=== PATIENT | female | born 1995 | race Two or more races ===

== ENCOUNTER 2019-02-02 08:53 | Inpatient (IN) | payer BC, MEDICAID ==
[~2019-02-02] VITALS: Ht 160 cm; Wt 96.0 kg
[~2019-02-02 08:53] MED LIST: PREN-153 OR; PRENTAB28 OR
[2019-02-02] MEDS ORDERED: ONDANSETRON HCL 4 MG/2 ML VIAL IV ONE (09:30)
[2019-02-02] MEDS ORDERED: KETOROLAC TROMETH 30 MG/ML 1ML VIAL IV ONE (09:30)
[2019-02-02 09:54] LABS: Urine Bacteria FEW /hpf (None Seen); Urine Blood Negative /uL (Negative); Urine Specific Gravity 1.013 (1.001-1.035); Urine WBC 1 /hpf (0 - 5)
[2019-02-02 09:59] LABS: Basophils # (auto) 0.1 uL; Basophils % (auto) 0.6 % (0.0-2.0); Eosinophils # (auto) 0.1 uL; Eosinophils % (auto) 1.1 % (0.0-7.0); Hematocrit 46.5 % (36.0-46.0); Hemoglobin 15.4 g/dL (12.2-16.2); Lymphocytes # (auto) 3.1 uL; Lymphocytes % (auto) 32.1 % (10.0-50.0); Mean Corpuscular Hemoglobin 29.3 pg (28.0-32.0); Mean Corpuscular Volume 88.6 fL (80.0-100.0); Monocytes # (auto) 0.5 uL; Monocytes % (auto) 5.1 % (0.0-12.0); Neutrophils % (auto) 61.1 % (37.0-80.0); Nucleated Red Blood Cells % 0.1 %; Platelet Count (auto) 250 10^3/uL (140-450); Red Blood Cells 5.25 10^6/uL (4.0-5.20); Red Cell Distribution Width 13.5 % (11.8-14.3); White Blood Cell 9.8 10^3/uL (4.4-10.8)
[2019-02-02] MEDS ORDERED: KETOROLAC TROMETH 60MG/2ML VIAL IV ONE (10:15)
[2019-02-02 10:19] LABS: Potassium 4.5 mmol/L (3.5-5.1)
[2019-02-02 10:23] LABS: BUN/Creatinine Ratio 13.2; Bilirubin, Total 0.5 mg/dL (0.2-1.0); Total Protein 8.1 g/dL (6.4-8.2)
[2019-02-02] MEDS ORDERED: ACETAMINOPHEN 500 MG TAB PO PRN (12:45)
[2019-02-02] MEDS: SODIUM CHLORIDE 0.9% 1,000 ML IV SCH (12:51)
[2019-02-02 15:00] LABS: INR 1.01 (0.9-1.15); Partial Thromboplastin Time 26.9 sec (23.64-32.05)
--- NOTE | 2019-02-02 18:13 | NUR ---
ASSUMED CARE OF PATIENT PATIENT ALERT AND ORIENTED X4. RESPIRATIONS EVEN AND UNLABORED. NO S/S OF DISTRESS, SOB, OR PAIN AT THIS TIME. ORIENTED PATIENT TO ROOM, UNIT, POLICIES AND PROCEDURES. DISCUSSED POC WITH PATIENT. PATIENT VERBALIZED UNDERSTANDING. BED IS IN LOWEST POSITION, SIDE RAILS UP X2, AND CALL LIGHT WITHIN REACH.
--- NOTE | 2019-02-02 19:36 | NUR ---
END OF SHIFT PATIENT RESTING IN BED. NO S/S OF DISTRESS, SOB, OR PAIN. ENDORSED CARE TO PLANNING ENGINEER R.N.
[2019-02-02] MEDS: ONDANSETRON HCL 4 MG/2 ML VIAL IV PRN (20:13)
[2019-02-02 22:00] VITALS: BP 113/52
[2019-02-03] MEDS: SODIUM CHLORIDE 0.9% 1,000 ML IV SCH ×2 (02:05→15:43)
[2019-02-03 05:00] VITALS: BP 97/53
[2019-02-03 06:28] LABS: Basophils # (auto) 0 uL; Basophils % (auto) 0.5 % (0.0-2.0); Eosinophils # (auto) 0.1 uL; Eosinophils % (auto) 1.3 % (0.0-7.0); Hematocrit 43.3 % (36.0-46.0); Hemoglobin 14.9 g/dL (12.2-16.2); Lymphocytes # (auto) 2.5 uL; Lymphocytes % (auto) 37.9 % (10.0-50.0); Mean Corpuscular Hemoglobin 30.4 pg (28.0-32.0); Mean Corpuscular Hgb Conc. 34.3 g/dL (32.0-36.0); Mean Corpuscular Volume 88.6 fL (80.0-100.0); Monocytes # (auto) 0.5 uL; Monocytes % (auto) 7.1 % (0.0-12.0); Neutrophils # (auto) 3.5 uL; Neutrophils % (auto) 53.2 % (37.0-80.0); Platelet Count (auto) 223 10^3/uL (140-450); Red Blood Cells 4.89 10^6/uL (4.0-5.20); Red Cell Distribution Width 13.3 % (11.8-14.3); White Blood Cell 6.6 10^3/uL (4.4-10.8)
[2019-02-03 06:49] LABS: Calcium 8.1 mg/dL (8.5-10.1); Potassium 3.9 mmol/L (3.5-5.1)
[2019-02-03 06:52] LABS: BUN/Creatinine Ratio 14.5
[2019-02-03 06:54] LABS: INR 1.04 (0.9-1.15); Partial Thromboplastin Time 27.8 sec (23.64-32.05)
--- NOTE | 2019-02-03 08:00 | NUR ---
RECEIVED PATIENT ALERT AND ORIENTED X4, NOT IN DISTRESS, CLEAR LS IN BILATERAL LUNG LOBES, RR=18 SAT=98%, HEART R=72, DENIED SOB AND CHEST DISCOMFORT, ABDOMEN SIFT WITH ACTIVE BS, LAST BM=02/02/19 REPORTED, KEEP NPO FOR PENDING SURGERY ORDERED, SKIN INTACT WARM TO TOUCH, RESTING ON BED, NEW IV SITE WAS INSERTED ON LT. HAND G20, TOLERATED WELL, DENIED PAIN, VISITORS AT BED SITE, WILL CONTINUE MONITORING.
[2019-02-03 09:04] VITALS: BP 112/54
--- NOTE | 2019-02-03 12:16 | NUR ---
VS T=97.6 RR=18 SAT=97% P=72 BP=98/78, NOT IN DISTRESS, CONSENT AND CHECK LIST COMPLETED AND ON CHART, WENT ON BED TO PRE OP, WILL CONTINUE FOLLOW UP.
[2019-02-03] MEDS ORDERED: ceFAZolin 1GM/50ML 50 ML IV ONE (12:38)
[2019-02-03] MEDS ORDERED: fentaNYL CITRATE 100 MCG/2 ML VL ONE (12:47)
[2019-02-03] MEDS ORDERED: MIDAZOLAM HCL 1MG/1ML-2 ML VIAL ONE (12:47)
[2019-02-03] MEDS ORDERED: ROCURONIUM 10MG/ML 10ML VIAL IV ONE (12:47)
[2019-02-03 12:49] VITALS: BP 96/67
[2019-02-03] MEDS ORDERED: ePHEDrine SULFATE 50 MG/ML AMP IV PRN (13:00)
[2019-02-03] MEDS ORDERED: hydrALAZINE HCL 20 MG/ML VL IV PRN (13:00)
[2019-02-03] MEDS ORDERED: ONDANSETRON HCL 4 MG/2 ML VIAL IV ONE (13:00)
[2019-02-03] MEDS ORDERED: HYDROmorphone HCL 2 MG/ML VL IV PRN (13:00)
[2019-02-03] MEDS: HYDROmorphone HCL 2 MG/ML VL IV PRN ×2 (13:57→14:17)
[2019-02-03] MEDS: MORPHINE SULF INJ 2 MG/ML SYRINGE 1ML IV PRN ×2 (15:39→21:21)
[2019-02-03] MEDS: ONDANSETRON HCL 4 MG/2 ML VIAL IV PRN (15:40)
--- NOTE | 2019-02-03 15:46 | NUR ---
Came back from or, alert and oriented x4, not in distress, laparoscopic incision on abdomen x3, covered with dry and intact dressing, no redness edema or oozing noted, abdominal binder on, tolerating well, VS T=97.9 RR=16 Sat=96% P=102 EW=992/75, C/O pain L=10/10 and nausea, Morphine and Zofran IV PRN was given as ordered, resting on bed, family at bed side, will xcontinue monitoring.
[2019-02-03 16:20] VITALS: BP 132/75
--- NOTE | 2019-02-03 19:54 | NUR ---
Resting on bed, not in distress, report was given to the second shift supervisor.
--- NOTE | 2019-02-03 20:09 | NUR ---
PAGED DR. GOMEZ TO GET AN ORDER FOR GAS PAIN. AWAITING FOR CALL BACK.
--- NOTE | 2019-02-03 21:30 | NUR ---
PATIENT IS C/O BLOATING, GAS PAIN, PAGED DR RIOS FOR GAS PAIN MEDICINE. DR RIOS CALLED AND ASKED ME TO CALL HOSPITALIST. PAGED HOSPITALIST AND NO CALL BACK. ENCOURAGED PATIENT TO AMBULATE, TO HELP PASS GAS. PATIENT AMBULATED ON THE HALLWAY, GOT UP TO THE BATHROOM A FEW TIMES, INCENTIVE SPIROMETER PROVIDED. MORPHINE IV GIVEN FOR ABDOMINAL PAIN WITH GOOD RELIEF. IV NS INFUSING ORDERED. VITAL SIGNS ARE STABLE.
[2019-02-03 22:32] VITALS: BP 121/73
[2019-02-04] MEDS: SODIUM CHLORIDE 0.9% 1,000 ML IV SCH ×2 (04:39→18:05)
[2019-02-04 05:25] VITALS: BP 107/67
--- NOTE | 2019-02-04 08:00 | NUR ---
Received patient alert and oriented x4, not in distress, lung sounds clear in bilateral lung lobes, RR=18 Sat=98%, IS education provided demonstrates and verbalized understanding, denied chest pain or short of breath, laparoscopic incision on abdomen x3, covered with dry and intact dressing, no redness edema or oozing noted, abdominal binder on, tolerating well, no gas passing yet, resting on bed, will continue monitoring.
[2019-02-04] MEDS: MORPHINE SULF INJ 2 MG/ML SYRINGE 1ML IV PRN ×2 (08:22→18:46)
[2019-02-04] MEDS: ONDANSETRON HCL 4 MG/2 ML VIAL IV PRN ×2 (08:22→18:46)
[2019-02-04 08:48] VITALS: BP 101/47
--- NOTE | 2019-02-04 10:00 | NUR ---
OUT OF BED AND AMBULATED AROUND THE UNIT X3, TOLERATED WELL, BACK TO BED AND RESTING AT THIS MOMENT.
--- NOTE | 2019-02-04 12:30 | NUR ---
C/O LT. abdomen gas pain, amputated around the unit with encouragement, no passing gas noted, Dr. Mcintosh was notified and aware.
[2019-02-04 12:37] VITALS: BP 113/66
[2019-02-04 17:00] VITALS: BP 102/63
--- NOTE | 2019-02-04 17:00 | NUR ---
NOT IN DISTRESS, RESTING ON BED, FAMILY AT BED SIDE, REPORT WAS GIVEN TO THE CIRCULAR SAWYER HELPER RN.
--- NOTE | 2019-02-04 18:30 | NUR ---
DR. PEERZ WAS PAGED FOR FOLLOW UP, WAITING FOR CALL BACK.
--- NOTE | 2019-02-04 19:40 | NUR ---
OPENING PLANT OPERATIONS COORDINATOR NOTE ASSUMED CARE OF PATIENT FROM DAY SHIFT CATRACHO KIRKPATRICK. PATIENT IS A/O X 4 WITH EVEN UNLABORED RESPIRATIONS. SHE DENIES ANY AB PAIN AT THIS TIME, BUT STATES THAT SHE HAS AB BLOATING. SHE STATES THAT SHE IS UNABLE TO PASS GAS OR STOOL AT THIS TIME, AND THAT SHE HAS BEEN AMBULATING MUCH SHE CAN. ACCORDING TO DAY SHIFT CATRACHO KIRKPATRICK AND IN NOTES, DR GILLIAM IS AWARE. PATIENT EDUCATED ON SPLINTING, AMB, FLUIDS, AND DIET. PATIENT STATED THAT SHE ATE A DOUGHNUT AND HAD COFFEE EARLIER THAT HER MOM GAVE TO HER. SHE WANTS DIET ADVANCED. PATIENT ALSO STATES THAT SHE IS ALLERGIC TO THE ZOFRAN BECAUSE SHE BROKE OUT IN A RASH AND STARTED ITCHING DURING CHANGE OF SHIFT. SHE STATES THAT NO ONE CAME WHEN CALL LIGHT WAS ON. RN NOT NOTIFIED BY NA THAT PATIENT CALLED. PATIENT ALSO UPSET THAT CATRACHO KIRKPATRICK GAVE HER ZOFRAN STATING THAT SHE HAD NO N/V. ZOFRAN DC'D AND ADDED TO ALLERGY LIST. ALL CONCERNS ADDRESSED. DISCUSSED POC AND PATIENT ENCOURAGED TO CALL PRN. BED IS IN LOWEST POSITION, LOCKED, AND CALL LIGHT IS IN REACH. WILL CONTINUE TO MONITOR Q1 AND PRN.
[2019-02-04 22:00] VITALS: BP 106/58
[2019-02-05 05:00] VITALS: BP 102/49
--- NOTE | 2019-02-05 07:10 | NUR ---
OPENING SHIFT NOTE ASSUMED CARE OF PATIENT. PATIENT IS A&OX4 WITH NO C/O PAIN. PRESENTS WITH ABDOMINAL BINDER AND INCISIONS X3, COVERED WITH GAUZE, NO DRAINAGE NOTED. AMBULATES INDEPENDENTLY. EDUCATED PATIENT ON USE OF CALL LIGHT PRN, PATIENT VERBALIZED UNDERSTANDING. NO CURRENT S/S OF DISTRESS NOTED, CONTINUING TO MONITOR PATIENT Q1 HR
[2019-02-05] MEDS: SODIUM CHLORIDE 0.9% 1,000 ML IV SCH ×2 (07:25→17:58)
--- NOTE | 2019-02-05 07:30 | NUR ---
CARE ENDORSED TO CRISTINA HAYDEN
[2019-02-05 09:00] VITALS: BP 120/68
[2019-02-05 13:00] VITALS: BP 116/59
[2019-02-05 17:00] VITALS: BP 106/59
--- NOTE | 2019-02-05 19:01 | NUR ---
CLOSING NOTE CARE OF PATIENT DELEGATED TO SHOE STOCK ASSOCIATE
--- NOTE | 2019-02-05 19:30 | NUR ---
OPENING SHIFT NOTE ASSUMED CARE OF PATIENT FROM CRISTINA HAYDEN. PATIENT IS A/O X4 WITH EVEN AND UNLABORED RESPIRATIONS. NO S/S OF DISTRESS NOTED AND PATIENT DENIES ANY PAIN. PATIENT STATES THE SHE HAD A BM TODAY AND THAT SHE IS NOW ABLE TO PASS GAS. PATIENT STATES THAT SHE WANTS TO GO HOME. AB BINDER IS IN PLACE. LAP CHARLES INCISION SITES ARE CLEAN, DRY, AND INTACT. BED IS IN LOWEST POSITION, LOCKED, CALL LIGHT IS IN PLACE. WILL CONTINUE TO MONITOR Q1 AND PRN.
--- NOTE | 2019-02-05 19:40 | NUR ---
DR GILLIAM PAGED FOR D/C ORDER PATIENT EAGER TO GO HOME. SHE STATED THAT DR MORILLO SAID SHE WAS ABLE TO GO HOME TODAY. ACCORDING TO DAY SHIFT RN CRISTINA, DR GILLIAM WOULD NOT DO A D/C ORDER WITH BERNABE MORILLO CLEARING HER. IN DR GOMEZ'S PROGRESS NOTE HE STATES "she is feeling well, abdomen is soft, nontender, nondistended, she remains afebrile and normotensive. bilirubin is normal as is cbc. she can be discharged, i will see her in the office in about two weeks. Paged Arnaldo to get order after searching floor for him. No call back.
--- NOTE | 2019-02-05 20:40 | NUR ---
IV removal 20 gauge IV to left hand leaking and DC'd with clean sterile technique. Catheter fully intact. Pressure dressing applied to site and patient educated to remove it 30 minutes. Patient tolerated well. NOTE:
[2019-02-05 22:00] VITALS: BP 124/70
--- NOTE | 2019-02-06 02:15 | NUR ---
PATIENT UPSET/VISITOR SLEEPING IN ROOM DURING 0200 ROUNDS, PATIENTS WAS FOUND LAYING THE HOSPITAL BED WITH HER. RN INFORMED PATIENT AND THAT HE WAS UNABLE TO STAY. VISITING HOURS REINFORCED. PATIENT BECAME VERY UPSET STATING " IF HE LEAVES THEN I LEAVE. THIS IS BULLSHIT. I SHOULD HAVE BEEN OUT OF HERE YESTERDAY". PATIENT WAS ENCOURAGED TO STAY, ADVISED OF RISKS AND BENEFITS. PATIENT VERBALIZED UNDERSTANDING. PATIENT THEN STATED " I GUESS, I HAVE NO CHOICE BUT TO STAY". NURSE EXPLAINED THAT SHE DOES HAVE A CHOICE AND BUT ONCE AGAIN ENCOURAGED PATIENT TO STAY. PATIENT THEN STATED THAT SHE WAS GOING TO CHEW THE [employer] TOMORROW. CALMED DOWN AND STATED THAT HE WOULD BE BACK IN THE MORNING. THEN LEFT.
[2019-02-06 05:00] VITALS: BP 121/70
--- NOTE | 2019-02-06 07:15 | NUR ---
OPENING SHIFT NOTE ASSUMED CARE OF PATIENT, BED IN LOW POSITION, SIDE RAILS UPX2, BRAKES ON AND CALL LIGHT WITHIN REACH. PATIENT IS A&OX4 WITH NO C/O PAIN, PRESENTS WITH ABDOMINAL BINDER IN PLACE, INCISIONS TO ABD C/D/I. AMBULATES INDEPENDENTLY. EDUCATED PATIENT ON USE OF CALL LIGHT PRN AND ON POC, PATIENT VERBALIZED UNDERSTANDING. NO CURRENT S/S OF DISTRESS NOTED, CONTINUING TO MONITOR PATIENT Q1 HR/PRN
[2019-02-06 09:00] VITALS: BP 117/71
[2019-02-06] MEDS: SODIUM CHLORIDE 0.9% 1,000 ML IV SCH (09:39)
[2019-02-06 10:19] VITALS: BP 117/71
--- NOTE | 2019-02-06 12:15 | NUR ---
DISCHARGE PATIENT HAS STEADY GAIT, NO C/O DISTRESS OR PAIN. IV WAS DC'D LAST SHIFT. PATIENT GIVEN EDUCATION AND FOLLOW UP INFORMATION. PATIENT HAS ALL QUESTIONS ANSWERED TO SATISFACTION. AMBULATED WITH SPOUSE TO VEHICLE
== END 2019-02-06 12:15 | disposition home or self-care (01) | DRG 419 ==
LOC: ER 08:53 → OVERFLOW 12:56 → WEST WING 18:18
PROVIDERS: ADMIT Nurse Practitioner Acute Care; ATTEND Internal Medicine Pulmonary Disease
PROC: 0FT44ZZ Resection of Gallbladder, Percutaneous Endoscopic Approach (ICD-10-PCS; principal; 2019-02-03 12:45)
DX: K80.00 Calculus of gallbladder with acute cholecystitis without obstruction (principal); E66.9 Obesity, unspecified; Z68.37 Body mass index [BMI] 37.0-37.9, adult; Z88.8 Allergy status to other drugs, medicaments and biological substances
CPT/HCPCS: 36415; 71046; 74176; 76705; 80048; 80053; 81001; 82247; 84702; 85025; 85610; 85730; 86850; 86900; 86901; 93005; 94761; 96374; 96375; G0378; J0690; J1885; J2250; J2405

== ENCOUNTER 2020-11-13 17:18 | Emergency (ER) | payer BC, MEDICAID ==
[~2020-11-13] VITALS: Ht 160 cm; Wt 121.1 kg
[2020-11-13 17:18] VITALS: BP 122/79
[~2020-11-13 17:18] MED LIST changes: -PREN-153 OR; +PREN1TAB71 OR
[2020-11-13 18:07] LABS: Urine Bacteria NONE SEEN /hpf (None Seen); Urine Blood 1+ /uL (Negative); Urine Specific Gravity 1.008 (1.001-1.035); Urine WBC 2 /hpf (0 - 5)
== END 2020-11-13 19:53 | disposition home or self-care (01) ==
LOC: ER 17:21
DX: N12 Tubulo-interstitial nephritis, not specified as acute or chronic (principal); Z79.899 Other long term (current) drug therapy
CPT/HCPCS: 81001

== ENCOUNTER 2022-08-21 12:23 | Emergency (ER) | payer BC, MEDICAID ==
[~2022-08-21] VITALS: Ht 160 cm; Wt 114.6 kg
[2022-08-21 13:50] LABS: Basophils # (auto) 0 10 ^3/uL (0-0.2); Basophils % (auto) 0.2 % (0.0-2.0); Eosinophils # (auto) 0.1 10 ^3/uL (0-0.8); Hematocrit 41.7 % (36.0-46.0); Hemoglobin 13.8 g/dL (12.2-16.2); Lymphocytes # (auto) 3.3 10 ^3/uL (0.4-5.4); Lymphocytes % (auto) 39.4 % (10.0-50.0); Mean Corpuscular Hemoglobin 28.7 pg (28.0-32.0); Mean Corpuscular Hgb Conc. 33.1 g/dL (32.0-36.0); Mean Corpuscular Volume 86.7 fL (80.0-100.0); Monocytes # (auto) 0.5 10 ^3/uL (0-1.3); Monocytes % (auto) 5.7 % (0.0-12.0); Neutrophils # (auto) 4.5 10 ^3/uL (1.6-8.6); Neutrophils % (auto) 53.7 % (37.0-80.0); Red Blood Cells 4.81 10^6/uL (4.0-5.20); Red Cell Distribution Width 13.6 % (11.8-14.3); White Blood Cell 8.4 10^3/uL (4.4-10.8)
[2022-08-21 14:09] LABS: Urine Bacteria NONE SEEN /hpf (None Seen); Urine Blood 3+ /uL (Negative); Urine Mucus FEW (None Seen); Urine Specific Gravity 1.027 (1.001-1.035); Urine WBC 10 /hpf (0 - 5)
[2022-08-21 14:16] LABS: Calcium 8.7 mg/dL (8.5-10.1); Potassium 3.7 mmol/L (3.5-5.1)
[2022-08-21 14:20] LABS: BUN/Creatinine Ratio 11.5; Bilirubin, Total 0.6 mg/dL (0.2-1.0); Total Protein 7.4 g/dL (6.4-8.2)
[2022-08-21 20:32] VITALS: BP 133/77
== END 2022-08-21 20:34 | disposition home or self-care (01) ==
LOC: ER 12:23
DX: R10.2 Pelvic and perineal pain (principal); N83.202 Unspecified ovarian cyst, left side; D17.79 Benign lipomatous neoplasm of other sites; Z79.899 Other long term (current) drug therapy; Z88.8 Allergy status to other drugs, medicaments and biological substances
CPT/HCPCS: 36415; 74176; 76856; 80053; 81001; 84702; 85025

== ENCOUNTER 2022-08-26 13:46 | Emergency (ER) | payer MEDICAID ==
[~2022-08-26] VITALS: Ht 160 cm; Wt 114.7 kg
[2022-08-26] MEDS ORDERED: CEPH-322 PO (17:27)
[2022-08-26 18:41] VITALS: BP 113/62
== END 2022-08-26 18:33 | disposition home or self-care (01) ==
LOC: ER 13:46
DX: N39.0 Urinary tract infection, site not specified (principal); N83.202 Unspecified ovarian cyst, left side; Z32.02 Encounter for pregnancy test, result negative; Z90.49 Acquired absence of other specified parts of digestive tract; Z88.6 Allergy status to analgesic agent
CPT/HCPCS: 81025

== ENCOUNTER 2025-06-21 14:13 | Emergency (ER) | payer MEDICAID ==
[~2025-06-21] VITALS: Ht 160 cm; Wt 105.3 kg
[~2025-06-21 14:13] MED LIST changes: +CEPH250C PO
--- NOTE | 2025-06-21 14:42 | ED.PDOC ---
Musculoskeletal HPI Comments 30-year-old female that presents to the ED for chief complaint of lower extremity pain. The patient states she was walking yesterday and states she slipped and fell off the curb landing on her right ankle. The patient says since she has been having right ankle swelling with increased pain on exam of the ambulate. Patient now in the ED rates her pain 5/10 constant non-radiating with noted exacerbation of pain with the movement or ambulation and no relieving factors. Patient the patient in the ED has not noted swelling to the right lateral malleolus. The patient in the ED otherwise has not noticed stable vitals. Patient otherwise denies any other symptoms. Chief Complaint: Lower Extremity Time Seen by MD: 14:39 Primary Care Provider: LC Miranda Notes: Medications, Allergies Allergies: Coded Allergies: Ondansetron (Verified Allergy, Mild, RASH AND ITCHING, 11/13/20) Home Meds Active Scripts Cephalexin (KEFLEX CAPSULE) 250 Mg Cp, 250 MG PO QID for 7 Days, #28 TAB Prov:ELDA TAMEZ MD 08/26/22 Reported Medications Vit W/ Ferrous Fumara (PNV PLUS MULTIVI) Plus Tab, 1 OR, TAB 10/12/15 Vit W/ Iron Carbonyl- ( PLUS IRON) Plus Fe Tab, 1 FE OR, TAB 07/19/15 Information Source: Patient Mode of Arrival: Wheelchair Brought in by: Self Location: Right Extremity Location: Ankle Past Medical History PAST MEDICAL HISTORY: Denies Surgical History: 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 Family History Family History: Reviewed,noncontributory to illness Social History Smoker: Non-Smoker Alcohol: Occasionally Drugs: Denies Drug Use Lives In: Home Constitutional: denies: chills, diaphoresis, fatigue, fever, malaise, sweats, weakness, others EENTM: denies: blurred vision, double vision, ear bleeding, ear discharge, ear drainage, ear pain, ear ringing, eye pain, eye redness, hearing loss, mouth pain, mouth swelling, nasal discharge, nose bleeding, nose congestion, nose pain, photophobia, tearing, throat pain, throat swelling, voice changes, others Respiratory: denies: cough, hemoptysis, orthopnea, SOB at rest, shortness of breath, SOB with excertion, stridor, wheezing, others Cardiovascular: denies: chest pain, dizzy spells, diaphoresis, Dyspnea on exertion, edema, irregular heart beat, left arm pain, lightheadedness, palpitations, PND, syncope, others Gastrointestinal: denies: abdomen distended, abdominal pain, blood streaked bowels, constipated, diarrhea, dysphagia, difficulty swallowing, hematemesis, melena, nausea, poor appetite, poor fluid intake, rectal bleeding, rectal pain, vomiting, others Genitourinary: denies: abnormal vagina bleeding, burning, dyspareunia, dysuria, flank pain, frequency, hematuria, incontinence, pain, , vagina disc harge, urgency, others Neurological: denies: dizziness, fainting, headache, left sided numbness, left sided weakness, numbness, paresthesia, pre-existing deficit, right sided numbness, right sided weakness, seizure, speech problems, tingling, tremors, weakness, others Musculoskeletal: reports: joint pain (Right ankle), joint swelling (Right ankle); denies: back pain, gout, muscle pain, muscle stiffness, neck pain, others Integumetry: denies: bruises, change in color, change in hair/nails, dryness, laceration, lesions, lumps, rash, wounds, others Allergic/Immunocompromised: denies: Difficulty Healing, Frequent Infections, Hives, Itching, others Hematologic/Lymphatic: denies: anemia, blood clots, easy bleeding, easy bruising, swollen glands, others Endocrine: denies: excessive hunger, excessive sweating, excessive thirst, excessive urination, flushing, intolerance to cold, intolerance to heat, unexplained weight gain, unexplained weight loss, others Psychiatric: denies: anxiety, bipolar disorder, depression, hopeless, panic disorder, schizophrenia, sleepless, suicidal, others All Other Systems: Reviewed and Negative Physical Exam General Appearance: No Apparent Distress, Normal HEENT: Normal ENT Inspection, Pharynx Normal, TMs Normal Neck: Full Range of Motion, Non-Tender, Normal, Normal Inspection Respiratory: Chest Non-Tender, Lungs Clear, No Accessory Muscle Use, No Respiratory Distress, Normal Breath Sounds Cardiovascular: No Edema, No JVD, No Murmur, No Gallop, Normal Peripheral Pulses, Regular Rate/Rhythm Breast Exam: Deferred Gastrointestinal: No Organomegaly, Non Tender, No Pulsatile Mass, Normal Bowel Sounds, Soft Genitalia: Deferred Pelvic: Deferred Rectal: Deferred Extremities: Swelling (Right ankle), Tender (Right ankle swelling noted to right lateral malleolus, noted decreased range of motion) Musculoskeletal : Apperance: Normal Neurologic: Alert, filling carrier II-XII nml as Tested, No Motor Deficits, Normal Affect, Normal Mood, No Sensory Deficits Cerebellar Function: Normal Reflexes: Normal Skin: Dry, Normal Color, Warm Lymphatic: No Adenopathy Was a procedure done? Was a procedure done?: No Differential Diagnosis EXT Differential Diagnosis: Fracture, Sprain, Neurovascular injury X-Ray, Labs, Meds, VS Vital Signs Date Time Temp Pulse Resp B/P (MAP) Pulse Ox O2 Delivery O2 Flow Rate FiO2 06/21/25 14:15 97.0 120 16 119/87 97 97.0 [place] [address] Ph: [phone] DIAGNOSTIC IMAGING Diagnostic Imaging Report : [id number] Signed PATIENT: ANGELICA HICKEY ACCT: [id number] UNIT: [id number] : 1995 LOC: ER ROOM / BED: / AGE / SEX: 30 / F ADM STATUS: REG ER SERVICE [id number] ORDERING PHYSICIAN: AMISH IBRAHIM NP PROCEDURE(s): RANKL - R ANKLE 3 VIEW REASON: R/o fracture lateral malleolus ORDER NUMBER(s): [id number], ACCESSION NUMBER(s): [id number] EXAM: XY R ANKLE 3 VIEW CLINICAL INDICATION: R/o fracture lateral malleolus TECHNIQUE: XY R ANKLE 3 VIEW Comparison: PELVIC on DOS: 08/21/22, PELUS on DOS: 08/21/22 FINDINGS/IMPRESSION: There is no evidence of acute fracture or dislocation. The visualized joint space is well maintained. The alignment is anatomical. There is no radiopaque foreign body. ATED BY: ILDA MOCK MD DICTATED DATE/TIME: 06/21/25 1506 SIGNED BY: ILDA MOCK MD SIGNED DATE/TIME: 06/21/25 150 CC: X-Ray, Labs, Meds, VS Comment Patient arrives alert and oriented, ABC's intact, afebrile, vital signs stable, saturating well in room air Diagnostic imaging ordered by me and results interpreted by radiology : Right ankle x-ray FINDINGS/IMPRESSION: There is no evidence of acute fracture or dislocation. The visualized joint space is well maintained. The alignment is anatomical. There is no radiopaque foreign body. Labs in the ED showed (pertinent+ and then pertinent-) Patient was given:_. Tolerated medications with no adverse reaction. Additional MDM Review of External, Non-ED records: External records reviewed. Discussion with independent historian (EMS, family) history obtained from the patient/parents (if applicable) at bedside Chronic conditions affecting care: None Social determinants of health affecting care: None Consideration of admission (observation or admission): I considered escalation of care to admission for this patient, however given the reassuring workup, the patient is safe for outpatient management. Discussion with the Radiology: No Tests considered but not performed: Prescription medication considered but not given: 12 lead EKG interpretation: Time of 1ST Reevaluation: 15:10 Reevaluation 1ST: Unchanged Patient Education/Counseling: Diagnosis, Treatment Family Education/Counseling: No Family Present Departure 1 Departure Time of Disposition: 15:16 Impression: Primary Impression: Right ankle sprain Qualified Codes: S93.401A - Sprain of unspecified ligament of right ankle, initial encounter Disposition: HOME / SELF CARE / HOMELESS Condition: Stable e-Prescriptions Naproxen (Naproxen) 500 Mg Tab 500 MG PO BID for 10 Days, #20 TAB 0 Refills Prov: AMISH IBRAHIM NP 06/21/25 Discharged With: Self Critical Care Note Critical Care Time?: No Stability Stability form required: No Heart Score Heart Score: Heart Score Response (Comments) Value History N/A 0 EKG N/A 0 Age N/A 0 Risk Factors N/A 0 Troponin N/A 0 Total 0 I personally scribed for AMISH IBRAHIM NP ([email or web address]) on 06/21/25 at 14:42. Electronically submitted by Young Whitfield ([email or web address]). I personally scribed for AMISH IBRAHIM NP ([email or web address]) on 06/21/25 at 15:11. Electronically submitted by Young Whitfield ([email or web address]). AMISH IBRAHIM TUBE SORTER Jun 21, 2025 14:42
--- NOTE | 2025-06-21 15:08 | DVH ---
EXAM: XY R ANKLE 3 VIEW CLINICAL INDICATION: R/o fracture lateral malleolus TECHNIQUE: XY R ANKLE 3 VIEW Comparison: PELVIC on DOS: 08/21/22, PELUS on DOS: 08/21/22 FINDINGS/IMPRESSION: There is no evidence of acute fracture or dislocation. The visualized joint space is well maintained. The alignment is anatomical. There is no radiopaque foreign body.
[2025-06-21] MEDS ORDERED: NAPR-746 PO (15:17)
[2025-06-21 15:36] VITALS: BP 103/61; PULSE 98; RESP 18; TEMP 98.2; O2SAT 99
== END 2025-06-21 15:39 | disposition home or self-care (01) ==
LOC: ER 14:13
DX: S93.401A Sprain of unspecified ligament of right ankle, initial encounter (principal); Z90.49 Acquired absence of other specified parts of digestive tract; W10.1XXA Fall (on)(from) sidewalk curb, initial encounter; Y93.01 Activity, walking, marching and hiking; Y92.89 Other specified places as the place of occurrence of the external cause; Y99.8 Other external cause status
CPT/HCPCS: 73610